=== PATIENT | male | born 1955 | race Two or more races ===

== ENCOUNTER 2018-03-18 19:45 | Emergency (ER) | payer SELFPAY ==
[~2018-03-18] VITALS: Ht 167.6 cm; Wt 63.0 kg
[2018-03-18 20:30] VITALS: BP 143/80
[2018-03-18] MEDS ORDERED: MAGNESIUM/ALUMINUM HYDROXIDE/SIMETHICONE 30ML UDC PO ONE (20:45)
== END 2018-03-18 21:40 | disposition left against medical advice (07) ==
LOC: ER 19:45
DX: R07.89 Other chest pain (principal); I45.10 Unspecified right bundle-branch block; I10 Essential (primary) hypertension; Z87.891 Personal history of nicotine dependence
CPT/HCPCS: 71045; 93005; 99284